=== PATIENT | male | born 1960 | race Caucasian/White ===

== ENCOUNTER 2017-10-23 19:41 | Day surgery (SDC) | payer BC ==
--- NOTE | 2017-10-23 07:22 | HP ---
History & Physical Update - History History: No Change - Physical Physical: No Change - Assessment Assessment: No Change - Plan Plan: No Change (Here today for elective repair of his chronic cervical stenosis with early signs of myelopathy. Plan for today is ACDF C4/5, C5/6 under neuromonitoring)
[2017-10-23 12:35] VITALS: BMI 25.0
--- NOTE | 2017-10-23 16:24 | OP ---
Operative Note - Note: Operative Date: 10/23/17 Pre-Operative Diagnosis: cervical stenosis, myelopathic Operation: ACDF C4/5, C5/6 Post-Operative Diagnosis: Same as Pre-op Surgeon: Geovani Corral Letter Sorting Machine Operator: Varghese Barrientos Anesthesiologist/STORAGE FACILITY HOUSEKEEPER: Leda Begum Anesthesia: General Specimens Removed: C4/5, C5/6 discs Estimated Blood Loss (mls): 10 Fluid Volume Replaced (mls): 1,600 Operative Report Dictated: Yes
--- NOTE | 2017-10-23 16:25 | SURG ---
Surgery Leadite Worker Note Leadite Worker: Varghese Barrientos PA-C Date of Service: 10/23/17 Diagnosis: cervical stenosis, myelopathic Procedure: Anterior cervical discectomy, fusion, instrumentation C4/5, C5/6; neuromonitoring I was present for the entirety of the operative procedure. For further detail, please refer to operative report. Visit type - Case Type Case Type: Scheduled Admission - New patient This patient is new to me today: Yes Date on this admission: 10/23/17
[2017-10-23] MEDS: CEFAZOLIN 1 GM/D5W 1 GM/50 ML BAG IVPB SCH (18:38)
[~2017-10-23 19:41] MED LIST: ACETAMINOPHEN 1000 MG/100 ML VIAL (NON FORMULARY) IVPB ONE; DESFLURANE GAS 240 ML BOTTLE IH ONE; DEXAMETHASONE SOD PHOSPHATE 4 MG/1 ML VIAL ONE; HYDROmorphone HCL/PF 1 MG/ML VIAL (FOR PYXIS CHARGING ONLY) ONE; LACTATED RINGERS SOLUTION 1,000 ML IV SCH; LIDOCAINE 1%/EPI 1:100000 (20 ML MULTI DOSE VIAL) ONE; MIDAZOLAM HCL 2 MG/2 ML SINGLE DOSE VIAL ONE; ONDANSETRON 4 MG/2 ML VIAL IVPUSH PRN; ONDANSETRON 4 MG/2 ML VIAL ONE; PROPOFOL 20 ML ONE; THROMBIN (BOVINE) 5,000 UNIT VIAL TP ONE; fentaNYL CITRATE 250 MCG/5 ML VIAL ONE; oxyCODONE HCL 10 MG SUSTAINED ACTING TABLET PO STA; oxyCODONE HCL 5 MG TABLET PO PRN
[2017-10-23] MEDS: oxyCODONE HCL 5 MG TABLET PO PRN (20:30)
[2017-10-23] MEDS: DEXAMETHASONE SOD PHOSPHATE 10 MG/1 ML VIAL IVPB SCH (21:48)
[2017-10-23] MEDS ORDERED: SERTRALINE HCL 50 MG TABLET (FP) PO SCH (22:00)
[2017-10-23] MEDS ORDERED: ATORVASTATIN CA 20 MG TABLET (FP) PO SCH (22:00)
[2017-10-24] MEDS: CEFAZOLIN 1 GM/D5W 1 GM/50 ML BAG IVPB SCH (02:38)
[2017-10-24] MEDS: DEXAMETHASONE SOD PHOSPHATE 10 MG/1 ML VIAL IVPB SCH ×2 (03:38→09:00)
[2017-10-24 06:02] VITALS: BP 133/69; PULSE 61; TEMP 97.9
--- NOTE | 2017-10-24 07:16 | DS ---
Physical Exam: SUBJECTIVE: Patient seen and examined. Alert. Doing well. C/o mild incisional tenderness. Adequate pain control via PRn meds. He's wearing his c-collar as instructed. Using incentive spirometer. OOB and ambulating unassisted. Voiding spontaneously. Prior too surgery had neck pain with numbness/tingling to his RUE /hand. Now s/p ACDF states the tingling has improved slightly. Denies n/v/f/c, CP, SOB, palpitations, GARCIA OBJECTIVE: Vital Signs Temperature 97.9 F 10/24/17 06:00 Pulse Rate 61 10/24/17 06:00 Respiratory Rate 18 10/24/17 06:00 Blood Pressure 133/69 10/24/17 06:00 O2 Sat by Pulse Oximetry (%) 94 L 10/24/17 06:00 PHYSICAL EXAM GENERAL: awake, alert, and fully oriented, in nad HEAD: NC.AT. EYES: PERRL, extraocular movements intact NECK: Trachea midline. Dressing c/d/i. NO hematoma. LUNGS: CTA bilat anteriorly HEART: RRR UE: 2+ pulses, warm, well-perfused, no edema. NEURO: CN II - XII grossly intact. Normal speech, gait not observed. LABS HOSPITAL COURSE: Date of Admission:10/23/17 Date of Discharge: 10/24/17 The patient was admitted to the Med-Surg Unit after an elective repair of their C4/5, C5/6 cervical stenosis/disc herniation/myelopathic. Now, s/p ACDF C4/5, C5 /6. The day of surgery, the patient ambulated the hallways with assistance. Narcotic and non-narcotic pain management control was achieved with an oral and IV approach. POD #1, an xray was obtained and confirmed hardware placement at C4 /5, C5/6, no fractures or dislocations. Nuha-operative IV ABX were administered. DVT prophylaxis was achieved with SCDs and early ambulation. The patient ambulated with Physical Therapy and no services were recommended upon discharge. Narcotic scripts and or muscle relaxants were checked with [facility] LEGAL OPERATIONS MANAGER prior to escribe. The discharge instructions and an oral pain management plan were reviewed with the patient. All questions answered. Above plan discussed with Dr. Corral and agreed. Minutes to complete discharge: 15 <Varghese Barrientos P - Last Filed: 10/24/17 07:10> Physical Exam: SUBJECTIVE: Patient seen and examined OBJECTIVE: Vital Signs Temperature 97.9 F 10/24/17 06:00 Pulse Rate 61 10/24/17 06:00 Respiratory Rate 16 10/24/17 07:46 Blood Pressure 133/69 10/24/17 06:00 O2 Sat by Pulse Oximetry (%) 98 10/24/17 07:46 PHYSICAL EXAM GENERAL: The patient is awake, alert, and fully oriented, in no acute distress. HEAD: Normal with no signs of trauma. EYES: PERRL, extraocular movements intact, sclera anicteric, conjunctiva clear. ENT: Ears normal, nares patent, oropharynx clear without exudates, moist mucous membranes. NECK: Trachea midline, full range of motion, supple. LUNGS: Breath sounds equal, clear to auscultation bilaterally, no wheezes, no crackles, no accessory muscle use. HEART: Regular rate and rhythm, S1, S2 without murmur, rub or gallop. ABDOMEN: Soft, nontender, nondistended, normoactive bowel sounds, no guarding, no rebound, no hepatosplenomegaly, no masses. EXTREMITIES: 2+ pulses, warm, well-perfused, no edema. NEUROLOGICAL: Cranial nerves II through XII grossly intact. Normal speech, gait not observed. PSYCH: Normal mood, normal affect. SKIN: Warm, dry, normal turgor, no rashes or lesions noted. LABS HOSPITAL COURSE: Date of Admission:10/23/17 Date of Discharge: 10/26/17 The patient was admitted to the Med-Surg Unit after an elective repair of their C4-6 herniated disc. The day of surgery, the patient ambulated the hallways with assistance. Narcotic and non-narcotic pain management control was achieved with an oral and IV approach. POD #1, the surgical drain was removed fully intact and without incident. An xray was obtained and confirmed hardware placement at C4-6, no fractures or dislocations. Nuha-operative IV ABX were administered. DVT prophylaxis was achieved with SCDs and early ambulation. The patient ambulated with Physical Therapy and no services were recommended upon discharge. Narcotic scripts and or muscle relaxants were checked with [place] LEGAL OPERATIONS MANAGER prior to escibe. The discharge instructions and an oral pain management plan were reviewed with the patient. All questions answered. Above plan discussed with Dr. Corral and agreed. <Geovani Corral - Last Filed: 10/26/17 13:17> Visit type - Case Type Case Type: Scheduled Admission <Varghese Barrientos - Last Filed: 10/24/17 07:10>
--- NOTE | 2017-10-24 07:34 | OP ---
DATE OF OPERATION: 10/23/2017 PREOPERATIVE DIAGNOSIS: Cervical stenosis, C4-C5, C5-C6. POSTOPERATIVE DIAGNOSIS: Cervical stenosis, C4-C5, C5-C6. PROCEDURE PERFORMED: 1. Anterior cervical discectomy and fusion, C4-C5. 2. Anterior cervical discectomy and fusion, C5-C6. 3. Placement of instrumentation, C4 to C6. SURGEON: Geovani Corral MD CHARGE AUTHORIZER: GARDENIA Atkins ESTIMATED BLOOD LOSS: 50 mL. INTRAVENOUS FLUIDS: Per Anesthesia. ANESTHESIA: General. COMPLICATIONS: There were none. DISPOSITION: Patient brought to the PACU in stable condition. INDICATIONS FOR SURGERY: The patient is a 57-year-old gentleman who has been suffering from pain from pain in his neck down his arms. He has also been noticed to have significant weakness in his hands and difficulty with balance. MRI was ordered, which noted that he had cervical stenosis at C4-C5 and C5-C6. He had gone through an exhaustive course of treatment for this which included medications, physical therapy, as well as injections. Unfortunately, his pain continued to persist despite all this. At this point, risks, benefits, and alternatives were discussed, and natural history of cervical myelopathy was discussed with the patient. Patient understood the significant risks involved in the procedure and consented to surgery. OPERATIVE NOTE: The patient was brought into the operating room by the anesthesia staff. After appropriate patient identification was performed, general anesthesia was administered. Appropriate anesthetic lines were placed. SCDs were placed on the patient. Neuromonitoring leads were attached. A shoulder roll was placed underneath his neck to extend his neck to the point that he could tolerate in the preoperative holding area. A needle was taped onto his neck to pb off the C4-C5 level, and x-rays taken to confirm this was correct. Needle was removed, and 10 mL of lidocaine with epinephrine was injected into his neck at this time. His neck was prepped and draped in the usual sterile manner. At this point, a time-out was completed. An incision was made in the left side of his neck. Dissection was carried down to the platysma. The platysma was cut in line with the skin incision. Next, internally rotated sternocleidomastoid as well as strap muscles was developed. Internally rotated, the carotid sheath as well as tracheal esophagus was developed. Peanuts were used to elevate it off the prevertebral fascia. A needle was placed into the C4-C5 disc, and x-ray was taken to confirm this was correct. Needle was removed, and the longus colli muscles were elevated off, and retractor blades were placed in. A [place] pin was placed into the body of C4 and C6. A knife was used to incise the disc. A Patel was used to elevate the disc off of the end-plate. A microscope was brought in at this time. Using a series of pituitaries, Kerrrisons, and curettes, a full discectomy was completed. End-plates were decorticated at this time. Cages filled with bone graft were placed into C5-C6 and C4-C5. [place] pins were removed. Screws were placed into the bodies of C4, C5, and C6. AP and lateral x-rays confirmed the instrumentation to be in good position. Final tightening was performed. The platysma was closed with a 2-0 Vicryl suture. Skin was closed with a 3-0 Monocryl suture. Dermabond was applied. Steri-Strips were applied. Sterile dressings were applied. Patient was placed supine on the OR bed and brought to the PACU in stable condition. Hernán [id number]
[2017-10-24] MEDS: oxyCODONE HCL 5 MG TABLET PO PRN (09:01)
--- NOTE | 2017-10-25 15:18 | PATH ---
Surgical Pathology Report Patient Name: JUAN MANUEL HAYES [facility]. Rec. #: [id number] /Age/Gender: 1960 (Age: 57) / M Account: [id number] Location: [facility] AMBULATORY Taken: 10/23/2017 Received: 10/23/2017 Reported: 10/25/2017 Physicians: Geovani Corral M.D. Specimen(s) Received C4-5 + C5-6 DISCS Clinical History Cervical stenosis Final Diagnosis C4-5, C5-6 DISCS, DISCECTOMY: INTERVERTEBRAL DISC TISSUE. Electronically Signed Marisela Guy M.D. Gross Description Received in formalin labeled "C4-5 and C5-6 disc," is a 3.5 x 3.0 x 0.3 cm aggregate of ho fragments of fibrocartilaginous tissue. A kiosk sales representative portion is submitted in one cassette. /10/24/201710/24/2017
== END 2017-10-24 12:50 | disposition home or self-care (01) ==
LOC: FASU 19:41 → FM/S 19:41 → FASU 10-24 12:50
PROVIDERS: ATTEND Orthopaedic Surgery Orthopaedic Surgery of the Spine
PROC: 0RG10A0 Fusion of Cervical Vertebral Joint with Interbody Fusion Device, Anterior Approach, Anterior Column, Open Approach (ICD-10-PCS; 2017-10-23)
PROC: 0RG10K0 Fusion of Cervical Vertebral Joint with Nonautologous Tissue Substitute, Anterior Approach, Anterior Column, Open Approach (ICD-10-PCS; 2017-10-23)
PROC: 0RB30ZZ Excision of Cervical Vertebral Disc, Open Approach (ICD-10-PCS; principal; 2017-10-23 13:50)
DX: M48.02 Spinal stenosis, cervical region (principal)
CPT/HCPCS: 72050-TC-FY; 76000-TC-FY; 88304-TC; 94760; 97116-GP; 97161-GP; J1100

== ENCOUNTER 2018-03-23 08:45 | Day surgery (SDC) | payer BC ==
[2018-03-21 16:23] VITALS: BMI 25.0
[2018-03-23] MEDS ORDERED: DEXAMETHASONE SOD PHOSPHATE/PF 10 MG/ML SDV ONE (10:34)
[2018-03-23] MEDS ORDERED: MIDAZOLAM HCL 2 MG/2 ML SINGLE DOSE VIAL ONE ×2 (10:34→11:32)
[2018-03-23] MEDS ORDERED: BUPIVACAINE HCL/PF (5 MG/ML) 30 ML VIAL IJ ONE (10:34)
[2018-03-23] MEDS ORDERED: DEXAMETHASONE SOD PHOSPHATE 4 MG/1 ML VIAL ONE (10:59)
[2018-03-23] MEDS ORDERED: KETOROLAC TROMETHAMINE 30 MG/1 ML VIAL ONE (10:59)
[2018-03-23] MEDS ORDERED: LIDOCAINE HCL/PF 2% SDV 5ML VIAL ONE (10:59)
[2018-03-23] MEDS ORDERED: ONDANSETRON 4 MG/2 ML VIAL ONE (10:59)
[2018-03-23] MEDS ORDERED: ceFAZolin SODIUM 1 GM VIAL ONE (10:59)
[2018-03-23] MEDS ORDERED: PROPOFOL 20 ML ONE ×2 (11:00)
[2018-03-23] MEDS ORDERED: TRANEXAMIC ACID 1000 MG/10 ML VIAL ONE (11:16)
[2018-03-23] MEDS ORDERED: ONDANSETRON 4 MG/2 ML VIAL IVPUSH PRN (12:45)
[2018-03-23] MEDS ORDERED: LACTATED RINGERS SOLUTION 1,000 ML IV SCH (12:45)
[2018-03-23] MEDS ORDERED: oxyCODONE HCL 5 MG TABLET PO PRN (12:45)
[2018-03-23 14:12] VITALS: BP 116/78; PULSE 61; TEMP 98
--- NOTE | 2018-03-23 15:51 | OP ---
DATE OF OPERATION: 03/23/2018 SURGEON: Balta Paige M.D. GENETICS NURSE: Seamus Arreaga PREOPERATIVE DIAGNOSIS: 1. Left shoulder adhesive capsulitis. 2. Left shoulder impingement syndrome. 3. Left shoulder acromioclavicular degenerative disease. 4. Left shoulder superior labrum anterior posterior synovitis. POSTOPERATIVE DIAGNOSIS: 1. Left shoulder adhesive capsulitis. 2. Left shoulder impingement syndrome. 3. Left shoulder acromioclavicular degenerative disease. 4. Left shoulder superior labrum anterior posterior synovitis. PROCEDURE: 1. Left shoulder arthroscopy with resection lysis of adhesions, CPT code 42903. 2. Left shoulder arthroscopy with subacromial decompression, CPT code 61644. 3. Left shoulder arthroscopy with resection of distal clavicle acromioclavicular joint, CPT code 31484. 4. Left shoulder arthroscopy debridement, CPT code 09145. FINDINGS: 1. Pre-manipulation range of motion elevation 110. 2. Rotation 20 and rotation to 40 post manipulation, elevation 80. 3. Glenohumeral synovitis. 4. Superior labrum anterior posterior with intact biceps type 1. 5. Posterior labral fraying. 6. Partial biceps tear 10%. 7. Type 2 acromion with . 8. Thickened scar subacromial space. 9. Inferior posterior clavicle with acromioclavicular joint disease. PROCEDURE: Informed consent was obtained. The patient was taken to the operating room, where the upper extremity was prepped and draped in a sterile fashion. A scalene block was performed by Anesthesia. Manipulation under anesthesia was allowed for full range of motion. Using standard arthroscopic technique, a posterior incision portal was made, which allowed for introduction of a camera into the glenohumeral joint. Under direct visualization, an anterior incision and portal was made. Extensive and thickened synovitis was debrided. Fraying of the labrum was debrided and the superior labrum from anterior to posterior was identified with all loose areas debrided. Any labral tears were taken to a stable rim including identified SLAP lesions. All loose cartilage was debrided. The rotator cuff was identified and evaluated, as were the subacromial and bursal surfaces. The posterior incision portal was redirected to the subacromial space, where a lateral incision and portal was made. Excessive and thickened synovium was removed throughout the subacromial space including the anterior scar tissue, posterior bursa and lateral bursa. The type 2 acromion was converted to a flattened type 1, removing the anterior and lateral spurring. An accessory portal was made at the acromioclavicular joint, removing the inferior spur of the distal clavicle at the acromioclavicular joint allowing for a distal clavicle partial resection. Please note that 1cm of undersurface of clavicle was removed extending into the intra articular portion and through an accessory portal. The shoulder was once again reexamined and all impingement was removed. The shoulder was drained. A single suture was placed in all portals and a sterile dressing was placed. The patient was transferred to the recovery room without complication. BALTA PAIGE M.D. 1 [id number]
--- NOTE | 2018-03-26 11:56 | PATH ---
Surgical Pathology Report Patient Name: JUAN MANUEL HAYES [facility]. Rec. #: [id number] /Age/Gender: 1960 (Age: 57) / M Account: [id number] Location: [facility] AMBULATORY Taken: 03/23/2018 Received: 03/23/2018 Reported: 03/26/2018 Physicians: Balta Umaña M.D. Specimen(s) Received LEFT SHOULDER SHAVINGS Clinical History Impingement syndrome left shoulder Final Diagnosis LEFT SHOULDER, SHAVINGS: SYNOVIAL TISSUE, FIBROCONNECTIVE TISSUE, BONE, AND CARTILAGE SHOWING DEGENERATIVE CHANGE. SKELETAL MUSCLE WITH NO DIAGNOSTIC ABNORMALITIES. Electronically Signed Alba Chaudhry M.D. Gross Description Received in formalin, labeled "left shoulder shavings," is a 4.5 x 4.0 x 0.5 cm. aggregate of ho-yellow soft tissue fragments. A outbound sales representative portion is submitted in one cassette. /03/23/2018 saudi/03/23/2018
== END 2018-03-23 14:14 | disposition home or self-care (01) ==
LOC: FASU 08:45
PROVIDERS: ATTEND Orthopaedic Surgery
PROC: 0RBK4ZZ Excision of Left Shoulder Joint, Percutaneous Endoscopic Approach (ICD-10-PCS; 2018-03-23)
PROC: 0PBB4ZZ Excision of Left Clavicle, Percutaneous Endoscopic Approach (ICD-10-PCS; principal; 2018-03-23 12:09)
DX: M75.02 Adhesive capsulitis of left shoulder (principal); M75.42 Impingement syndrome of left shoulder; M19.012 Primary osteoarthritis, left shoulder; M65.812 Other synovitis and tenosynovitis, left shoulder
CPT/HCPCS: 88304-TC